=== PATIENT | male | born 1990 | race American Indian/Alaskan Native ===

== ENCOUNTER 2022-05-03 19:21 | Emergency (ER) | payer SELFPAY ==
[2022-05-03] MEDS ORDERED: prednisoLONE Soln 15 MG/5 ML UD Cup PO ONE (20:18)
[2022-05-03] MEDS ORDERED: Omeprazole 20 MG Cap.CR PO ONE (20:18)
[2022-05-03] MEDS ORDERED: Alum Hydro/Mag Hydro/Simeth XS 15 ML, Metoclopramide 5 MG, Lidocaine 2% 5 ML PO ONE ×3 (20:18)
== END 2022-05-03 20:37 | disposition home or self-care (01) ==
LOC: MW.ED 19:21
DX: Z02.89 Encounter for other administrative examinations (principal); Z76.0 Encounter for issue of repeat prescription; E78.00 Pure hypercholesterolemia, unspecified; I10 Essential (primary) hypertension; F17.210 Nicotine dependence, cigarettes, uncomplicated
CPT/HCPCS: 99283; A9270